=== PATIENT | female | born 1975 | race Caucasian/White ===

== ENCOUNTER 2018-03-26 10:47 | Emergency (ER) | payer OTHER ==
[2018-03-26 11:10] VITALS: O2SAT 99
[2018-03-26 11:45] VITALS: PULSE 68
--- NOTE | 2018-03-26 11:53 | ERPHSYRPT ---
- History of Present Illness Time Seen by Provider: 03/26/18 11:48 Source: patient Exam Limitations: no limitations Patient Subjective Stated Complaint: states was karate chopping a board this AM hurting the top of her right hand and into her 5th knuckle. + radial pulse present Triage Nursing Assessment: pain to the right hand after karate choppintg a board this morning.. pain to the top of the hand.. + radial pulse present. Physician History: The patient is a 43-year-old right-handed female complaining that she hurt the little finger portion of her right hand was trying to break a board by punching it. This occurred this morning. She denies numbness or tingling. She took Tylenol but it did not help. I offered her Toradol IM and she declined. Occurred: this morning Method of Injury: direct blow Quality: sharpness Extremities Pain Location: hand: right Modifying Factors: Improves With: nothing Associated Symptoms: none Allergies/Adverse Reactions: No Known Drug Allergies Allergy (Unverified 05/17/15 23:28) Home Medications: Hydrocodone Bit/Acetaminophen [[place] 5-325 Tablet] 05/17/15 [History] Naproxen [Naprosyn] 05/17/15 [History] Hx Tetanus, Diphtheria Vaccination/Date Given: No Hx Influenza Vaccination/Date Given: No Hx Pneumococcal Vaccination/Date Given: No Immunizations Up to Date: Yes - Review of Systems Constitutional: No Fever, No Chills Eyes: No Symptoms Ears, Nose, & Throat: No Symptoms Respiratory: No Cough, No Dyspnea Cardiac: No Chest Pain, No Edema, No Syncope Abdominal/Gastrointestinal: No Abdominal Pain, No Nausea, No Vomiting, No Diarrhea Genitourinary Symptoms: No Dysuria Musculoskeletal: Injury Skin: No Rash Neurological: No Dizziness, No Focal Weakness, No Sensory Changes Psychological: No Symptoms Endocrine: No Symptoms Hematologic/Lymphatic: No Symptoms Immunological/Allergic: No Symptoms All Other Systems: Reviewed and Negative - Past Medical History Pertinent Past Medical History: Yes Musculoskeletal History: Degenerative Disk Disease, Other Psycho-Social History: Anxiety Other Medical History: chronic back pain, pyloric stenosis. - Past Surgical History Past Surgical History: Yes - Social History Smoking Status: Unknown if ever smoked Exposure to second hand smoke: No Drug Use: none Patient Lives Alone: No - Female History Hx Now: No - Nursing Vital Signs Nursing Vital Signs: Initial Vital Signs Temperature 97.8 F 03/26/18 10:57 Pulse Rate 72 03/26/18 10:57 Respiratory Rate 16 03/26/18 10:57 Blood Pressure 127/92 03/26/18 10:57 O2 Sat by Pulse Oximetry 99 03/26/18 10:57 Pain Scale Pain Intensity 6 - Physical Exam General Appearance: alert Eyes, Ears, Nose, Throat Exam: moist mucous membranes Neck Exam: non-tender, supple Cardiovascular/Respiratory Exam: chest non-tender, normal breath sounds, regular rate/rhythm, no respiratory distress Abdominal Exam: non-tender, No guarding Back Exam: normal inspection, No vertebral tenderness Shoulder Exam: normal inspection Elbow/Forearm Exam: normal inspection Wrist Exam: normal inspection Hand Exam: ecchymosis, limited ROM, soft tissue tenderness (Examination of the right hand shows tenderness, swelling, and bruising over the fifth MCP joint.), swelling Neuro/Tendon Exam: normal sensation, normal motor functions Mental Status Exam: alert, oriented x 3, cooperative Skin Exam: ecchymosis SpO2 Interpretation: normal SpO2: 99 Oxygen Delivery: Room Air - Radiology Exams Right Hand X-ray Interpretation: Reviewed by me, Teleradiologist Report (per Dr Razo), Negative, No Fracture Ordered Tests: Active Orders 24 hr Category Date Time Status HAND (MINIMUM 3 VIEWS) Stat Exams 03/26/18 11:55 Completed - Progress Progress: unchanged Progress Note: 03/26/18 12:47 pt declines anagesics Counseled pt/family regarding: diagnosis, rad results - Departure Time of Disposition: 12:48 Departure Disposition: Home Clinical Impression: Contusion of right hand Condition: Stable Critical Care Time: No Referrals: DOCTOR,NO FAMILY [Primary Care Provider] - Additional Instructions: You have a contusion of the right hand. The x-ray of your right hand did not show any broken bones. You were offered Toradol but you declined. You offered and ibuprofen prescription you declined. Take Tylenol and ibuprofen over-the- counter as needed. Apply ice to the painful area as needed. Although with your primary medical doctor as needed.
--- NOTE | 2018-03-26 12:14 | XRAY ---
Indication: Pain following punching injury. Comparison: None 3 views of the right hand obtained. No bony, articular, or soft tissue abnormalities.
[2018-03-26 12:58] VITALS: BP 126/73
== END 2018-03-26 12:56 | disposition home or self-care (01) ==
LOC: ED 10:47
DX: S60.221A Contusion of right hand, initial encounter (principal); W22.8XXA Striking against or struck by other objects, initial encounter; Y93.89 Activity, other specified; Z79.899 Other long term (current) drug therapy
CPT/HCPCS: 73130; 99283

== ENCOUNTER 2023-04-23 15:22 | Emergency (ER) | payer SELFPAY ==
[2023-04-23 15:33] VITALS: TEMP 97.2
[2023-04-23 15:39] VITALS: RESP 18; O2SAT 98
--- NOTE | 2023-04-23 15:46 | ERPHSYRPT ---
- History of Present Illness Source: patient Exam Limitations: no limitations Patient Subjective Stated Complaint: pt here for cough,sob for 3-4 days now, her boyfriend has flu a Triage Nursing Assessment: pt alert, walked in, has dry cough, resp easy, skin w/d/p, face mask in place, no edema noted, no fever Physician History: The patient is a non-smoker who has cough congestion fever chills symptoms started maybe 3 to 4 days ago but got worse over the past 24 hours. Her boyfriend tested positive for flu a Allergies/Adverse Reactions: No Known Drug Allergies Allergy (Verified 04/23/23 15:26) Hx Tetanus, Diphtheria Vaccination/Date Given: No Hx Influenza Vaccination/Date Given: No Hx Pneumococcal Vaccination/Date Given: No Immunizations Up to Date: Yes Travel Risk - International Travel Have you traveled outside of the country in past 3 weeks: No - Coronavirus Screening Are you exhibiting any of the following symptoms?: Yes Symptoms: Cough: New Onset, Shortness of Breath - Vaccine Status Have you recieved a Covid-19 vaccination: No - Review of Systems Constitutional: Chills Eyes: No Symptoms Ears, Nose, & Throat: No Symptoms Respiratory: Cough Cardiac: No Chest Pain, No Edema, No Syncope Abdominal/Gastrointestinal: No Abdominal Pain, No Nausea, No Vomiting, No Diarrhea Genitourinary Symptoms: No Dysuria Musculoskeletal: No Back Pain, No Neck Pain Skin: No Rash Neurological: No Dizziness, No Focal Weakness, No Sensory Changes Psychological: No Symptoms Endocrine: No Symptoms All Other Systems: Reviewed and Negative - Past Medical History Pertinent Past Medical History: Yes Musculoskeletal History: Degenerative Disk Disease, Other Psycho-Social History: Anxiety Other Medical History: chronic back pain, pyloric stenosis. - Past Surgical History Past Surgical History: Yes - Social History Smoking Status: Never smoker Exposure to second hand smoke: Yes Drug Use: none Patient Lives Alone: No - Female History Hx Last Menstrual Period: now Hx Now: No - Nursing Vital Signs Nursing Vital Signs: Initial Vital Signs Temperature 97.2 F 04/23/23 15:32 Pulse Rate 81 04/23/23 15:32 Respiratory Rate 16 04/23/23 15:32 Blood Pressure 116/77 04/23/23 15:32 O2 Sat by Pulse Oximetry 94 L 04/23/23 15:32 Pain Scale Pain Intensity 3 - Physical Exam General Appearance: no apparent distress, alert Eye Exam: PERRL/EOMI, eyes nml inspection Ears, Nose, Throat Exam: normal ENT inspection, TMs normal, pharynx normal, moist mucous membranes Neck Exam: normal inspection, non-tender, supple, full range of motion Respiratory Exam: lungs clear, crackles/rales, other, No respiratory distress Cardiovascular Exam: regular rate/rhythm, normal heart sounds Gastrointestinal/Abdomen Exam: soft, No tenderness Back Exam: normal inspection, No CVA tenderness, No vertebral tenderness Extremity Exam: normal inspection, normal range of motion Neurologic Exam: alert, oriented x 3, cooperative, normal mood/affect, sensation nml, No motor deficits Skin Exam: normal color, warm, dry, No rash Lymphatic Exam: No adenopathy SpO2 Interpretation: normal SpO2: 98 O2 Delivery: Room Air Comments: 04/23/23 15:42 The patient presents with cough. There is some rales and rhonchi at the left base. This could be early pneumonia. No respiratory distress. Patient is clinically well-appearing - Course Nursing assessment & vital signs reviewed: Yes - Progress Progress: unchanged Air Movement: good Progress Note: 04/23/23 15:43 This patient presents with symptoms suspicious for likely viral upper respiratory infection. Based on history and physical doubt sinusitis.The patient has been exposed to flu. She Declines testing. At this point she may have a pneumonia. She is not in respiratory distress. The patient will be treated for flu and pneumonia. The patient is not hypoxic. There is no respiratory distress. The patient stable for a trial of outpatient management. Do not suspect underlying cardiopulmonary process. I considered, but think unlikely, dangerous causes of this patients symptoms to include ACS, CHF or COPD exacerbations, pneumothorax. Patient is nontoxic appearing and not in need of emergent medical intervention 04/23/23 15:47 The patient is well appearing, and nontoxic. After careful history, physical exam, vital signs, and review of any laboratory or diagnostic data as ordered, I made the decision the patient does not appear to have a life threatening illness and can be carefully discharged with close follow-up. I do not feel any further imaging or laboratory data is needed at this time. I have considered both emergent and urgent disease pathology. I have given written and verbal discharge instructions, as well as the current differential diagnosis. Patient advised of the importance of following up with their PCP concerning findings, treatment, and status post treatment. All laboratory, radiology, respiratory, and assessment findings were reviewed in detail with the patient. Patient was educated on all prescriptions and proper usage as well as the importance of following up with primary care in a timely fashion for ongoing health and wellness management. The nursing staff has reiterated the disposition plan as well - Departure Departure Disposition: Home Clinical Impression: Influenza A, Pneumonia, Upper respiratory infection, Fever Condition: Stable Critical Care Time: No Referrals: DOCTOR,NO FAMILY [Primary Care Provider] - Follow up/PCP as directed Instructions: Pneumonia, Adult (DC), Cough, Adult (DC), Flu, Flu, Adult (DC) Additional Instructions: Thank you for choosing our Emergency Department for your healthcare! Please take your medicines prescribed as directed and be assured that you follow up with the physician provided or your PCP in the next 1-2 days to assure you are improving. All medical problems cannot be reasonably diagnosed in your ED visit today. Return for any changes or concerns, including if your condition does not improve or you are unable to obtain follow-up. Some final results, including radiology reports, do not return the same day, but are available on the patient portal or can be obtained through your PCP Prescriptions: Oseltamivir 75 mg [Tamiflu 75MG Capsule] 75 mg PO BID #10 cap Azithromycin [Zithromax] 250 mg PO ZPACK #6 tablet
[2023-04-23 16:12] VITALS: BP 110/72; PULSE 83
== END 2023-04-23 16:10 | disposition home or self-care (01) ==
LOC: ED 15:22
DX: J10.00 Influenza due to other identified influenza virus with unspecified type of pneumonia (principal); J06.9 Acute upper respiratory infection, unspecified; R50.9 Fever, unspecified; R05.1 Acute cough; Z28.310 Unvaccinated for COVID-19
CPT/HCPCS: 99281

== ENCOUNTER 2023-10-18 14:00 | Emergency (ER) | payer SELFPAY ==
[2023-10-18 14:13] VITALS: PULSE 73; RESP 18; TEMP 97.2; O2SAT 98
--- NOTE | 2023-10-18 15:06 | ERPHSYRPT ---
- History of Present Illness Time Seen by Provider: 10/18/23 14:12 Source: patient Exam Limitations: no limitations Patient Subjective Stated Complaint: Pt states "I was hit with the lawnmower a couple days ago and hurt my left forearm and then I went rollerblading and some heavyset woman fell onto my right lower leg." Triage Nursing Assessment: PT presented alert and oriented X 3, skin wpd. Pt has abrasion noted to left lower forearm and tenderness noted to right lateral knee, no bruising noted. PT also stating her back hurts from falling when hit with the mower. Physician History: 48-year-old female presented in the ER with complaint of right leg pain after a heavyset woman fell on her right lower leg and also got hit by lawn more in the same leg with a fall and hit that her left forearm as well. Did not hit her head. No loss of consciousness. This happened couple of days ago. Patient reports dull aching mild to moderate pain with ambulation/pain and some bruising on the leg. Has a small abrasion on the left forearm. Up-to-date with tetanus. No injury anywhere else. Allergies/Adverse Reactions: Pork/Porcine Containing Products Adverse Reaction (Verified 10/18/23 14:13) Headache Hx Tetanus, Diphtheria Vaccination/Date Given: No Hx Influenza Vaccination/Date Given: No Hx Pneumococcal Vaccination/Date Given: No Immunizations Up to Date: No Travel Risk - International Travel Have you traveled outside of the country in past 3 weeks: No - Emerging Infectious Disease Are you exhibiting symptoms associated with any current EIDs: No - Review of Systems Constitutional: No Symptoms Ears, Nose, & Throat: No Symptoms Respiratory: No Symptoms Cardiac: No Symptoms Abdominal/Gastrointestinal: No Symptoms Genitourinary Symptoms: No Symptoms Musculoskeletal: Fall, Injury Skin: Skin Lesions Neurological: No Symptoms - Past Medical History Pertinent Past Medical History: Yes Musculoskeletal History: Degenerative Disk Disease, Other Psycho-Social History: Anxiety Other Medical History: chronic back pain, pyloric stenosis. - Past Surgical History Past Surgical History: Yes - Female History Hx Last Menstrual Period: 09/12/2023 Hx Now: No - Social History Smoking Status: Never smoker Exposure to second hand smoke: Yes Drug Use: none Patient Lives Alone: No - Social Determinants of Health Will the patient participate in the screening: Declined to provide - Nursing Vital Signs Nursing Vital Signs: Initial Vital Signs Temperature 97.2 F 10/18/23 14:06 Pulse Rate 73 10/18/23 14:06 Respiratory Rate 18 10/18/23 14:06 Blood Pressure 140/104 10/18/23 14:06 O2 Sat by Pulse Oximetry 98 10/18/23 14:06 Pain Scale Pain Intensity 4 - [place] Coma Score Best Eye Response (Earnest): (4) open spontaneously Best Verbal Response ([place]): (5) oriented Best Motor Response ([place]): (6) obeys commands Earnest Total: 15 - Physical Exam General Appearance: no apparent distress Head Injury: no evidence of injury Eye Exam: PERRL/EOMI, eyes nml inspection ENT Exam: airway nml, No evidence of ENT injury, No dental injury Neck Exam: supple, trachea midline, full range of motion, normal alignment Respiratory/Chest Exam: normal breath sounds, No chest tenderness, No respiratory distress Cardiovascular Exam: normal heart sounds, regular rate/rhythm Back Exam: normal inspection, normal range of motion Extremity Exam: other (Bruising right lower leg below the knee on the lateral side with minimal tenderness. Distal neurovascular intact. Mild abrasion left forearm but no bony tenderness.) Neurologic Exam: alert, oriented x 3, cooperative Skin Exam: normal color SpO2 Interpretation: normal SpO2: 98 O2 Delivery: Room Air Ordered Tests: Active Orders 24 hr Category Date Time Status LOWER LEG Stat Exams 10/18/23 14:50 Taken - Progress Progress Note: 10/18/23 15:04 48-year-old is evaluated in the ER for right leg and left forearm injury after she got hit by a lawnmower and later a heavyset lady fell on her while she was on rollerblade couple of days ago. Patient has pain, no significant osseous tenderness. Offered pain medication which she declined. I have obtained x-rays of tib-fib which are negative for acute fracture reviewed by me, official report is pending. I do not think patient needs imaging of the left forearm. Recommended Tylenol/ibuprofen as needed, intermittent ice application and outpatient follow-up. Discussed signs symptoms of worsening needing return to ER which she seems understanding. Stable for discharge. Counseled pt/family regarding: diagnosis, need for follow-up Medical Desision Making - Diagnostic Testing Diagnostic test were ordered, analyzed, and reviewed by me: Yes Radiological Interpretation: Interpreted by me, Reviewed by me - Risk of complications The pt has a mod risk of morbidity or mortality based on: Need for prescription drug management - Departure Departure Disposition: Home Clinical Impression: Contusion of leg, right, Forearm abrasion Condition: Stable Critical Care Time: No Referrals: DOCTOR,NO FAMILY [Primary Care Provider] - Follow up/PCP as directed Instructions: Contusion (DC) Additional Instructions: Follow-up with your primary care for reevaluation if pain does not go away in the next few days. Take Tylenol ibuprofen as needed. Intermittent ice application. Avoid exertional activities. Return to ER for any worsening. Prescriptions: Ibuprofen 600 mg PO Q6HPRN PRN 10 Days #20 tablet PRN Reason: Pain
[2023-10-18 15:11] VITALS: BP 142/100
--- NOTE | 2023-10-18 21:12 | XRAY ---
Indication: Pain 1 week. Comparison: None 2 view right lower leg obtained. No bony, articular, or soft tissue abnormalities.
== END 2023-10-18 15:16 | disposition home or self-care (01) ==
LOC: ED 14:00
DX: S80.11XA Contusion of right lower leg, initial encounter (principal); W50.0XXA Accidental hit or strike by another person, initial encounter; Y93.51 Activity, roller skating (inline) and skateboarding; S50.812A Abrasion of left forearm, initial encounter; W22.8XXA Striking against or struck by other objects, initial encounter
CPT/HCPCS: 73590; 99282